=== PATIENT | female | born 1930 | race Caucasian/White ===

== ENCOUNTER 2016-08-13 21:56 | Inpatient (IN) | payer OTHER, BC ==
[~2016-08-13] VITALS: Ht 149.9 cm; Wt 47.9 kg
[~2016-08-13 21:56] MED LIST: ASPIR 8181 M1 PO; CHILD ASPIRIN81 M1 PO; FOSINOPRIL SODI20 MG PO; HYDROCHLOROTH12.5 M2 PO; KEFLEX500 MG PO; MONOPRIL20 MG PO; Monopril PO; NIFEDICAL XL30 MG PO; NIFEDICAL XL60 MG PO; Procardia XL,Adalat PO
[2016-08-13 23:50] LABS: HEMATOCRIT 44.8 % (36.0-46.0); MCH 29.9 PG (29.0-34.0); MCHC 31.9 G/DL (30.0-36.0); MCV 93.5 FL (83-99); MEAN PLAT.VOLUME 9.6 uM^3 (9.5-12.4); PLATELET COUNT 191 K/uL (156-360); RBC DIS.WIDTH-CV 13.4 % (11.8-14.6); RBC DIS.WIDTH-SD 46.1 % (39-53); RED BLOOD COUNT 4.79 M/uL (3.80-5.20); WHITE BLOOD COUNT 6.1 K/uL (4.1-10.2)
[2016-08-14 00:01] LABS: CHLORIDE 106 mEq/L (99-109); POTASSIUM 4.2 mEq/L (3.7-5.4)
[2016-08-14 00:02] LABS: SODIUM 144 mEq/L (136-147)
[2016-08-14 00:04] LABS: GLUCOSE 100 mg/dL (70-99)
[2016-08-14 00:05] LABS: ANION GAP 10 MEQ/L (2-14)
[2016-08-14 00:06] LABS: TOTAL BILIRUBIN 0.4 mg/dL (0.0-1.0)
[2016-08-14 00:07] LABS: ALKALINE PHOSPHATASE 95 IU/L (3-129)
[2016-08-14 00:08] LABS: GFR ESTIMATE (CALCULATED) 50 mL/min/
[2016-08-14 00:09] LABS: DIRECT BILIRUBIN 0.1 mg/dL (0.0-0.3); UREA NITROGEN (BUN) 20 mg/dL (9-23)
[2016-08-14 00:11] LABS: LIPASE 28 U/L (1.0-51.0)
[2016-08-14 00:47] LABS: TROP-I INTERPRETATION NEGATIVE; TROPONIN-I 0.01 ng/mL (0.0-0.30)
[2016-08-14 01:23] LABS: ADD MIUA? NO; BILIRUBIN NEGATIVE; BLOOD NEGATIVE; COLOR YELLOW ((YELLOW)); GLUCOSE (STRIP) NEGATIVE; KETONES NEGATIVE; LEUKOCYTES NEGATIVE; NITRITE NEGATIVE; PROTEIN (STRIP) 30; SPECIFIC GRAVITY 1.019 (1.000-1.030); UCUL ADDED? NO; UROBILINOGEN 0.2 MG/DL (0.2-1.0)
[2016-08-14] MEDS ORDERED: NIFEDIPINE ER60 MG PO (01:29)
[2016-08-14] MEDS ORDERED: LO-DOSE ASPIRIN81 M2 PO (01:29)
[2016-08-14 02:44] LABS: D-DIMER ELISA > 4.00 mg/L FEU (< 0.57)
[2016-08-14 04:45] VITALS: BP 169/70
[2016-08-14 06:18] LABS: HDL CHOLESTEROL 56 MG/DL (Desirable>=50); LDL CHOLESTEROL 98 mg/dL (Desirable<100); NON-HDL CHOLESTEROL 111 mg/dL (Desirable<160); TOTAL CHOLESTEROL 167 mg/dL (Desirable<200); TRIGLYCERIDES 63 MG/DL (Normal: <150)
[2016-08-14 07:35] LABS: HEMATOCRIT 43.9 % (36.0-46.0); MCH 30.4 PG (29.0-34.0); MCHC 31.9 G/DL (30.0-36.0); MCV 95.4 FL (83-99); MEAN PLAT.VOLUME 10.1 uM^3 (9.5-12.4); PLATELET COUNT 192 K/uL (156-360); RBC DIS.WIDTH-CV 13.6 % (11.8-14.6); WHITE BLOOD COUNT 5.3 K/uL (4.1-10.2)
[2016-08-14 07:40] LABS: Estimated Average Glucose 126 mg/dL (70-123)
[2016-08-14 10:15] VITALS: BP 117/81; BP 177/81
[2016-08-14 10:42] LABS: INTER. NORMALIZED RATIO 1.1; PROTHROMBIN TIME 11.3 (9.2-11.2)
[2016-08-14 11:07] LABS: PTT > 150.0 (25-32)
[2016-08-14 15:15] VITALS: BP 150/72
[2016-08-14 19:37] VITALS: BP 143/68
[2016-08-14 23:22] VITALS: BP 146/73
[2016-08-15 03:07] VITALS: BP 129/73
[2016-08-15 08:15] VITALS: BP 150/70
[2016-08-15] MEDS ORDERED: AZITHROMYCIN500 M1 PO (11:08)
[2016-08-15] MEDS ORDERED: SPIRIVA RESPIMAT4 GM IH (11:08)
[2016-08-15] MEDS ORDERED: ATORVASTATIN CA40 MG PO (11:08)
[2016-08-15] MEDS ORDERED: ANTIVERT12.5 MG PO (11:08)
[2016-08-15] MEDS ORDERED: ADVAIR HFA120 INHALA IH (11:08)
[2016-08-15 11:30] VITALS: BP 149/72
[2016-08-15] MEDS ORDERED: VENTOLIN HFA18 GM IH (11:36)
[2016-08-15] MEDS ORDERED: INCRUSE ELLI62.5 MCG IH (14:13)
[2016-08-15] MEDS ORDERED: DULERA 200 MCG/13 GM IH (14:13)
[2016-08-15] MEDS ORDERED: SEREVENT DISKU50 MCG IH (15:45)
== END 2016-08-15 17:58 | disposition home or self-care (01) | DRG 149 ==
LOC: EME 21:56 → 4EAST 08-14 01:50 → EDOF 08-14 01:50 → 4EAST 08-14 04:28
PROVIDERS: Emergency Medicine; Internal Medicine; Physician Assistant Medical
DX: H81.10 Benign paroxysmal vertigo, unspecified ear (principal); J44.0 Chronic obstructive pulmonary disease with (acute) lower respiratory infection; J44.1 Chronic obstructive pulmonary disease with (acute) exacerbation; J20.9 Acute bronchitis, unspecified; F17.200 Nicotine dependence, unspecified, uncomplicated; K21.9 Gastro-esophageal reflux disease without esophagitis; Z85.21 Personal history of malignant neoplasm of larynx; M19.90 Unspecified osteoarthritis, unspecified site; I12.9 Hypertensive chronic kidney disease with stage 1 through stage 4 chronic kidney disease, or unspecified chronic kidney disease; N18.3 Chronic kidney disease, stage 3 (moderate); I25.10 Atherosclerotic heart disease of native coronary artery without angina pectoris; Z86.718 Personal history of other venous thrombosis and embolism; Z96.642 Presence of left artificial hip joint
CPT/HCPCS: 70450; 71020; 78582; 80048; 80061; 80076; 81003; 83036; 83690; 84484; 85027; 85379; 85610; 85730; 93005; 93970; 94640; 94640 76; 99202; 99281; 99285; A9540; A9567; J1644